=== PATIENT | male | born 1965 | race Two or more races ===

== ENCOUNTER 2025-04-07 13:45 | Inpatient (IN) | payer BC, OTHER ==
[~2025-04-07] VITALS: Ht 180.3 cm; Wt 105.2 kg
[2025-04-07 14:50] VITALS: PULSE 130; RESP 16; O2SAT 96
[2025-04-07 14:55] LABS: Hematocrit 44.5 % (41.0-53.0); Hemoglobin 14.8 g/dL (13.5-17.5); Mean Corpuscular Hemoglobin 30.2 pg (28.0-32.0); Mean Corpuscular Volume 90.7 fL (80.0-100.0); Nucleated Red Blood Cells % 0.0 %
[2025-04-07 15:08] LABS: Alanine Aminotransferase 18 U/L (7-40); Albumin 4.4 g/dL (3.2-4.8); Alkaline Phosphatase 117 U/L (46-116); Anion Gap 13 (5-15); BUN/Creatinine Ratio 14.4 (10.0-20.0); Bilirubin, Total 1.1 mg/dL (0.2-1.0); Blood Urea Nitrogen 16 mg/dL (9-23); Calcium 9.1 mg/dL (8.7-10.4); Carbon Dioxide 28 mmol/L (20-31); Chloride 104 mmol/L (98-107); Glucose 95 mg/dL (74-106); Lipase 34 U/L (12-53); Potassium 3.6 mmol/L (3.5-5.1); Sodium 145 mmol/L (136-145); Total Protein 7.6 g/dL (5.7-8.2)
[2025-04-07] MEDS: PANTOPRAZOLE 40 MG/10 ML VIAL INJ IV ONE (15:10)
[2025-04-07] MEDS: ONDANSETRON HCL 4 MG/2 ML VIAL IV ONE ×2 (15:10→17:03)
[2025-04-07] MEDS: SODIUM CHLORIDE 0.9% 1,000 ML IV ONE ×2 (15:11→17:38)
[2025-04-07] MEDS: IOHEXOL 300 MG/ML 100ML BOTTLE IJ ONE (16:02)
--- NOTE | 2025-04-07 16:45 | DVH ---
CLINICAL INFORMATION: Abdominal pain. TECHNIQUE: Axial CT images of the abdomen and pelvis were obtained after the uneventful administration of 80 mL Omnipaque 300 IV contrast. Coronal and sagittal reformatted images were obtained, reviewed, and stored. All CT scans at this medical facility are performed using dose modulation techniques as appropriate to a performed exam including the following: Automated exposure control was utilized; adjustment of the MA and/or KV according to patient size; and use of iterative reconstruction technique. CTDIvol = 24.22 mGy DLP = 1296.32 mGy-cm COMPARISON: None FINDINGS: Lung bases: Lung bases are clear. Liver: Small cyst in the left hepatic lobe. Biliary: No calcified gallstones or biliary ductal dilatation. Spleen: Unremarkable. Pancreas: Atrophic pancreas. Adrenal glands: Unremarkable. No mass. Kidneys: There are low-density lesions in both kidneys, with the largest in the upper pole of the left kidney consistent with a cyst in the smaller lesions too small to characterize. Aorta/Vascular: Scattered mild atherosclerotic calcification. No abdominal aortic aneurysm or dissection. Lymph Nodes: No mass or lymphadenopathy. Bowel/mesentery: Dilated fluid-filled small bowel loops with transition to nondilated distal small bowel in the right lower abdomen consistent with small- bowel obstruction. Appendix is visualized and appears unremarkable. No free air or free fluid. Pelvic organs: Grossly unremarkable. Bladder: Unremarkable. No mass. Abdominal wall: No mass or hernia. Bones: No acute fracture or focal intraosseous lesion. IMPRESSION: 1. Findings consistent with small-bowel obstruction. 2. Additional findings as detailed above.
--- NOTE | 2025-04-07 16:55 | DVH ---
CHEST RADIOGRAPH Indication: abdominal pain Technique: Single frontal view of the chest was obtained Comparison: None FINDINGS: Lines and Tubes: Sternal wire sutures in place Lungs: No focal consolidation. Pleura: No effusion. No pneumothorax. Cardiomediastinal contours: Unremarkable Bones: No acute osseous abnormality. IMPRESSION: 1. No acute cardiopulmonary disease.
[2025-04-07] MEDS: MORPHINE SULFATE 4 MG/ML SYR/VIAL IV ONE (17:07)
--- NOTE | 2025-04-07 17:10 | ED.PDOC ---
History of Present Illness HPI Comments 59 y/o M is BIBA with c/c of nonradiating, epigastric abdominal pain, nausea, vomiting, and hematemesis. Patient reports on sudden onset of symptoms, earlier, today. Pain is a 10/10 in severity. Denies any bloody or black stools, diarrhea, or further acute symptoms. Per EMS personnel report, patient was found in AFib w/RVR with no history of arrhythmias in the past. 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 Pourer Past Medical History PAST MEDICAL HISTORY: Denies Surgical History: Denies all surgeries Family History Family History: Unknown Social History Smoker: Non-Smoker Alcohol: Denies ETOH Use Drugs: Denies Drug Use Lives In: Home All Other Systems: Reviewed and Negative (Comprehensive review of systems are negative unless stated in HPI) Physical Exam General Appearance: No Apparent Distress, Normal HEENT: Normal ENT Inspection, Pharynx Normal, TMs Normal Neck: Full Range of Motion, Non-Tender, Normal, Normal Inspection Respiratory: Chest Non-Tender, Lungs Clear, No Accessory Muscle Use, No Respiratory Distress, Normal Breath Sounds Cardiovascular: No Edema, No JVD, No Murmur, No Gallop, Normal Peripheral Pulses, Regular Rate/Rhythm Breast Exam: Deferred Gastrointestinal: Epigastric (tenderness ), No Organomegaly, No Pulsatile Mass, Normal Bowel Sounds, Soft, Tenderness (epigastric region ) Genitalia: Deferred Pelvic: Deferred Rectal: Deferred Extremities: No calf tenderness, Normal capillary refill, Normal inspection, Normal range of motion, Non-tender, No pedal edema Musculoskeletal : Apperance: Normal Neurologic: Alert, bit shaver II-XII nml as Tested, No Motor Deficits, Normal Affect, Normal Mood, No Sensory Deficits Cerebellar Function: Normal Reflexes: Normal Skin: Dry, Pallor, Warm Lymphatic: No Adenopathy Was a procedure done? Was a procedure done?: No EKG EKG #1: Pulse Rate (adult): 128 Scott: Normal Cardiac Rhythm: Afib Block: None Hypertrophy: None ST: Normal EKG #2: Pulse Rate (adult): 132 Scott: Normal Cardiac Rhythm: Afib Block: None Hypertrophy: None ST: Normal Differential Dx Considerations may include: Gastritis, gastroenteritis, GERD, PUD, esophageal varices, esophagus, upper GI bleed, anemia, new onset of AFib w/RVR, among others X-Ray, Labs, Meds, VS Vital Signs Date Time Temp Pulse Resp B/P (MAP) Pulse Ox O2 Delivery O2 Flow Rate FiO2 04/07/25 16:34 120 04/07/25 14:48 132 04/07/25 14:04 128 Lab Test 04/07/25 15:17 04/07/25 14:20 Range/Units Troponin I High Sensitivity 13 12 </=54 ng/L White Blood Count 12.0 H 4.4-10.8 10^3/uL Red Blood Count 4.91 4.5-5.90 10^6/uL Hemoglobin 14.8 13.5-17.5 g/dL Hematocrit 44.5 41.0-53.0 % Mean Corpuscular Volume 90.7 80.0-100.0 fL Mean Corpuscular Hemoglobin 30.2 28.0-32.0 pg Mean Corpuscular Hemoglobin Concent 33.2 32.0-36.0 g/dL Red Cell Distribution Width 15.7 H 11.8-14.3 % Platelet Count 166 140-450 10^3/uL Mean Platelet Volume 10.3 6.9-10.8 fL Neutrophils (%) (Auto) 73.3 37.0-80.0 % Lymphocytes (%) (Auto) 16.5 10.0-50.0 % Monocytes (%) (Auto) 9.5 0.0-12.0 % Eosinophils (%) (Auto) 0.4 0.0-7.0 % Basophils (%) (Auto) 0.3 0.0-2.0 % Neutrophils # (Auto) 8.8 H 1.6-8.6 10 ^3/uL Lymphocytes # (Auto) 2.0 0.4-5.4 10 ^3/uL Monocytes # (Auto) 1.1 0-1.3 10 ^3/uL Eosinophils # (Auto) 0.1 0-0.8 10 ^3/uL Basophils # (Auto) 0 0-0.2 10 ^3/uL Nucleated Red Blood Cells 0.0 % Sodium Level 145 136-145 mmol/L Potassium Level 3.6 3.5-5.1 mmol/L Chloride Level 104 98-107 mmol/L Carbon Dioxide Level 28 20-31 mmol/L Anion Gap 13 5-15 Blood Urea Nitrogen 16 9-23 mg/dL Creatinine 1.11 0.700-1.30 mg/dL Glomerular Filtration Rate Calc 77 >90 mL/min BUN/Creatinine Ratio 14.4 10.0-20.0 Serum Glucose 95 74-106 mg/dL Lactic Acid Level 1.7 0.4-2.0 mmol/L Calcium Level 9.1 8.7-10.4 mg/dL Total Bilirubin 1.1 H 0.2-1.0 mg/dL Aspartate Amino Transferase (AST) 41 H 13-40 U/L Alanine Aminotransferase (ALT) 18 7-40 U/L Alkaline Phosphatase 117 H 46-116 U/L Total Protein 7.6 5.7-8.2 g/dL Albumin 4.4 3.2-4.8 g/dL Lipase 34 12-53 U/L Current Medications Medications (Trade) Dose Ordered Sig/Markos Route Start Time Stop Time Status Last Admin Sodium Chloride 1,000 ml @ 1,000 mls/hr Q1H ONCE IV 04/07/25 14:00 04/07/25 14:59 DC 04/07/25 15:11 Ondansetron HCl (Zofran) 4 mg ONCE ONCE IV 04/07/25 14:00 04/07/25 14:04 DC 04/07/25 15:10 Pantoprazole Sodium (Protonix) 80 mg ONCE ONCE IV 04/07/25 14:00 04/07/25 14:05 DC 04/07/25 15:10 Time of 1ST Reevaluation: 14:30 Reevaluation 1ST: Unchanged Patient Education/Counseling: Diagnosis, Treatment Family Education/Counseling: Diagnosis, Treatment SEPSIS Sepsis Screen Physician Orders Urinalysis (04/07/25 13:59) Chest Portable (04/07/25 13:59) Ct Ab Pel With Iv Con Only (04/07/25 13:59) Electrocardigram (04/07/25 13:59) Blood Culture (04/07/25 13:59) Troponin-I Hs (04/07/25 16:59) Electrocardigram (04/07/25 14:59) Electrocardigram (04/07/25 16:59) * Surgical Consult (04/07/25 ) Ng/Orogastric Tube To Lis (04/07/25 17:05) Vital Signs Date Time Temp Pulse Resp B/P (MAP) Pulse Ox O2 Delivery O2 Flow Rate FiO2 04/07/25 16:34 120 04/07/25 14:48 132 04/07/25 14:04 128 Laboratory Tests Test 04/07/25 14:20 Lactic Acid Level 1.7 mmol/L (0.4-2.0) White Blood Count 12.0 10^3/uL (4.4-10.8) H Medications Medications Dose Ordered Sig/Markos Route Start Time Stop Time Status Last Admin Dose Admin Ondansetron HCl 4 mg ONCE ONCE IV 04/07/25 14:00 04/07/25 14:04 DC 04/07/25 15:10 Pantoprazole Sodium 80 mg ONCE ONCE IV 04/07/25 14:00 04/07/25 14:05 DC 04/07/25 15:10 Sodium Chloride 1,000 ml @ 1,000 mls/hr Q1H ONCE IV 04/07/25 14:00 04/07/25 14:59 DC 04/07/25 15:11 Departure 1 Departure Time of Disposition: 17:11 (Patient presented with abdominal pain that was concerning for possible appendicits, gastritis, cholecystitis, colitis, gastroenteritis, sbo, or orther possible surgical emergency. Data: 1. I ordered and reviewed the result of at least 3 labs including a CBC, BMP, and Urinalysis. 2. I independently interpreted the following tests: CT Abdomen and Pelvis is concerning for SBO.Risk:This patient has a high risk of morbidity due to further diagnostic testing or treatment and may suffer from an acute abdominal process disorder. Workup reveals SBO new onset AFib and patient should be admitted for further workup. and possible expert consultation. ) Impression: Primary Impression: Small bowel obstruction Additional Impression: Atrial fibrillation, new onset Disposition: ADMITTED INPATIENT Admit to: Tele Condition: Guarded Critical Care Note Critical Care Time?: Yes Critical care comment: Small-bowel obstruction and new onset AFib Authorized and Performed by: Yessica Kearns MD Total critical care time: Approximately 41 minutes Due to a high probability of clinically significant, life threatening deterioration, the patient required my highest level of preparedness to intervene emergently and I personally spent this critical care time directly and personally managing the patient. This critical care time included obtaining a history; examining the patient; pulse oximetry; ordering and review of studies; arranging urgent treatment with development of a management plan; evaluation of patient's response to treatment; frequent reassessment; and, discussions with other providers. This critical care time was performed to assess and manage the high probability of imminent, life-threatening deterioration that could result in multi-organ failure. It was exclusive of separately billable procedures and treating other patients and teaching time. Please see my other sections and the rest of the note for further information on patient assessment and treatment. Stability Stability form required: No Heart Score Heart Score: Heart Score Response (Comments) Value History N/A 0 EKG N/A 0 Age N/A 0 Risk Factors N/A 0 Troponin N/A 0 Total 0 I personally scribed for YESSICA KEARNS MD ([email or web address]) on 04/07/25 at 17:10. Electronically submitted by Francisco J Eng [email or web address]). YESSICA KEARNS MD Apr 07, 2025 17:10
[2025-04-07] MEDS ORDERED: NITROGLYCERIN 0.4 MG SL TAB SL PRN (18:15)
[2025-04-07] MEDS ORDERED: MORPHINE SULFATE INJ 2 MG/ml SYRG IV PRN (18:15)
[2025-04-07] MEDS ORDERED: ENOXAPARIN SOD 80 MG/0.8ML SYRINGE SC ONE (19:00)
[2025-04-07] MEDS: AMIODARONE BOLUS KIT 100 ML IV ONE (19:37)
[2025-04-07 21:53] LABS: Urine Protein, UAD 1+ (Negative)
[2025-04-07] MEDS: PIPERACILLIN-TAZOB 3.375GM 100 ML IV SCH (22:50)
[2025-04-07] MEDS: SODIUM CHLORIDE 0.9% 1,000 ML IV SCH (22:51)
[2025-04-07] MEDS: ONDANSETRON HCL 4 MG/2 ML VIAL IV PRN (22:51)
[2025-04-07] MEDS: MORPHINE SULFATE INJ 2 MG/ml SYRG IV PRN (22:53)
[2025-04-07] MEDS: ENOXAPARIN SOD 120 MG/0.8 ML SYRINGE SC SCH (22:53)
[2025-04-08] VITALS (40 sets, daily range): BP systolic 131–178; BP diastolic 74–143; PULSE 90–150; RESP 12–26; TEMP 97.9–99.1; O2SAT 81–97
--- NOTE | 2025-04-08 00:20 | DVHHP2 ---
Admitting Diagnosis: Small Bowel Obstruction, Afib with RVR History of Present Illness History Source: Patient Exam Limitations: No limitations HPI Mr. Lai Yan is a 59 y/o male with a history of CVA with right sided weakenss, seizures, heart valve replacement x2, who presents with a chief complaint of nonradiating, epigastric abdominal pain, nausea, vomiting, and hematemesis. Patient reports on sudden onset of symptoms, earlier, today. Pain is a 10/10 in severity. Denies any bloody or black stools, diarrhea, or further acute symptoms. Patient was found in AFib w/RVR at Urgent care with no history of arrhythmias in the past. Patient denies nausea, vomiting, chest pain, dyspnea, fevers, chills. Patient admitted for further evaluation and treatment. Past Medical History Cardiac: No pertinent Hx Pulmonary: No pertinent Hx Central Nervous System: CVA, Seizure GI: No pertinent Hx Hemotology/Oncology: No pertinent Hx Hepatobiliary: No pertinent Hx Psychiatric: No pertinent Hx Musculoskeletal: No pertinent Hx Rheumotologic: No pertinent Hx Infectious Disease: No peritnent Hx ENT: No pertinent Hx Renal/: No pertinent Hx Endocrine: No pertinent Hx Dermatology: No pertinent Hx Past Surgical History: Other (heart valve replacement x2) Smoker: No Hx (Negative) Drugs: None Domestic Violence: Neg Review of Systems Constitutional: No symptom reported Ears, Nose, & Throat: No symptom reported Eyes: No symptom reported Pulmonary/Respiratory: No symptom reported Cardiovascular: Palpitations Gastrointestinal: Nausea, Vomiting, Abdominal Pain Genitourinary: No symptom reported Musculoskeletal: No symptom reported Skin: No symptom reported Psychiatric: No symptom reported Endocrine: No symptom reported Hemotologic/Lymphatic: No symptom reported H&P Exam Vital Signs Vital Signs Date Time Temp Pulse Resp B/P (MAP) Pulse Ox O2 Delivery O2 Flow Rate FiO2 04/07/25 23:31 105 15 135/96 (109) 95 04/07/25 19:18 98.0 98.0 04/07/25 14:50 Room Air* 0 21 General Appeara: Well developed, Well nourished, Normal Appearance Head Exam: Normal inspection Neck Exam: Normal inspection, Non-tender, Normal alignment Eye Exam: bilateral eye Normal inspection, bilateral eye PERRL, bilateral eye EOMI Ear Exam: bilateral ear Auricle normal Nasal Exam: Normal inspection Mouth: Normal Inspection Pulmonary/Respiratory: Normal inspection, Normal breath sounds, Chest non- tender, Lungs clear Cardiovascular/Chest: Normal inspection, Regular rate, Normal Rhythm Peripheral Pulses: 2+ dorsalis pedis (R), 2+ dorsalis pedis (L), 2+ Radial (R), 2+ Radial (L) Abdominal Exam: Soft, Other (hypoactive bowel sounds) 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, Normal speech, PERRL Neuro/Mental St: Alert, Oriented Appearance: Appropriate appearance, Appropriate insight Eye contact/ Speech: Cooperative, Good eye contact, Normal speech Thoughts/Psych: Normal thought pattern Skin Exam: Normal inspection, Normal color, Warm/dry SEPSIS Sepsis Screen Date sepsis recognized/suspect: Apr 07, 2025 Time Sepsis recognized/suspect: 1349 Recent Procedure: No On Antibiotic Therapy: No Respiratory Rate >20: No Heart Rate >90: No Temp<36 C (96.8 F) or >38.3 C: No SBP <90 or MAP <65 mmHG: No New Acute Mental Status Change: No Is the patient on CPAP, BIPAP,: No Physician Orders * Surgical Consult (04/07/25 ) Ng/Orogastric Tube To Lis (04/07/25 17:05) Admit (04/07/25 18:04) Sodium Chloride 0.9% (04/07/25 18:15) Ondansetron Hcl (Zofran) (04/07/25 18:15) Complete Blood Count (04/08/25 04:00) Comprehensive Metabolic Panel (04/08/25 04:00) Npo (Nothing By Mouth) Diet (04/07/25 Dinner) Echo 2d Mode Cardiac Dop (04/07/25 18:04) Condition: Critical (04/07/25 18:04) Morphine Sulfate Injection (04/07/25 18:15) Nitroglycerin Sublingual (Ntrostat Subli (04/07/25 18:15) Morphine Sulfate Injection (04/07/25 18:15) Stat Ekg For Chest Pain (04/07/25 18:04) Notify Md Of Changes From Base (04/07/25 18:04) Account Manager Sales Representative For 24 Hours (04/07/25 18:04) Emergency Dysrhythmia Protocol (04/07/25 18:04) Rhythm Strips Once Every Shift (04/07/25 18:04) Oxygen By Nasal Cannula (04/07/25 18:04) * Cardiology Consult (04/07/25 18:08) Amiodarone 450mg/250ml Ae (Cordarone) (04/07/25 19:30) Amiodarone 450mg/250ml Ae (Cordarone) (04/08/25 01:30) Communication Order (04/07/25 19:18) Hydralazine Injection (Apresoline Inject (04/07/25 19:30) Piperacillin-Tazob 3.375gm (Zosyn 3.375g (04/07/25 22:00) Enoxaparin Sodium (Lovenox) (04/07/25 22:00) Place Ng (04/07/25 22:18) Chest Xray 1 View (04/07/25 23:15) Levetiracetam 1000 Mg/100ml (Levetiracet (04/08/25 00:15) Vital Signs Date Time Temp Pulse Resp B/P (MAP) Pulse Ox O2 Delivery O2 Flow Rate FiO2 04/07/25 23:31 105 15 135/96 (109) 95 04/07/25 23:23 102 16 147/90 04/07/25 22:53 105 15 152/92 04/07/25 22:31 108 17 145/93 (110) 95 04/07/25 21:31 117 16 146/90 (108) 99 04/07/25 21:00 103 16 152/95 (114) 94 04/07/25 19:18 98.0 150 18 160/97 95 98.0 04/07/25 19:00 130 16 172/92 (118) 100 04/07/25 17:10 132 04/07/25 17:07 85 16 173/90 04/07/25 17:00 130 16 173/90 (117) 91 04/07/25 16:34 120 Laboratory Tests Test 04/07/25 14:20 Lactic Acid Level 1.7 mmol/L (0.4-2.0) White Blood Count 12.0 10^3/uL (4.4-10.8) H Medications Medications Dose Ordered Sig/Markos Route Start Time Stop Time Status Last Admin Dose Admin Amiodarone HCl 100 ml @ 600 mls/hr ONCE ONCE IV 04/07/25 19:15 04/07/25 19:30 MD 04/07/25 19:37 600 MLS/HR Amiodarone HCl 250 ml @ 33.33 mls/ hr Q7H31M ONCE IV 04/07/25 19:30 04/08/25 03:00 04/07/25 20:31 33.33 MLS/HR Enoxaparin Sodium 110 mg Q12HR SC 04/07/25 22:00 04/07/25 22:53 110 MG Morphine Sulfate 2 mg Q4HPRN PRN IV 04/07/25 18:15 04/07/25 22:53 2 MG Morphine Sulfate 4 mg ONCE ONCE IV 04/07/25 17:00 04/07/25 17:01 MD 04/07/25 17:07 4 MG Ondansetron HCl 4 mg ONCE ONCE IV 04/07/25 14:00 04/07/25 14:04 MD 04/07/25 15:10 4 MG Ondansetron HCl 4 mg ONCE ONCE IV 04/07/25 17:00 04/07/25 17:01 MD 04/07/25 17:03 4 MG Ondansetron HCl 4 mg Q4HP PRN IV 04/07/25 18:15 04/07/25 22:51 4 MG Pantoprazole Sodium 80 mg ONCE ONCE IV 04/07/25 14:00 04/07/25 14:05 MD 04/07/25 15:10 80 MG Piperacillin Sod/ Tazobactam Sod 100 ml @ 25 mls/hr Q8HR IV 04/07/25 22:00 04/07/25 22:50 25 MLS/HR Sodium Chloride 1,000 ml @ 120 mls/hr Q8H20M IV 04/07/25 18:15 04/07/25 22:51 120 MLS/HR Sodium Chloride 1,000 ml @ 1,000 mls/hr Q1H ONCE IV 04/07/25 14:00 04/07/25 14:59 DC 04/07/25 15:11 1,000 MLS/HR Sodium Chloride 1,000 ml @ 1,000 mls/hr Q1H ONCE IV 04/07/25 17:30 04/07/25 18:29 DC 04/07/25 17:38 1,000 MLS/HR Labs/Xrays Labs Test 04/07/25 21:30 04/07/25 17:58 04/07/25 14:20 Range/Units Urine Color Yellow Yellow Urine Clarity Clear Clear Urine pH 6.0 5.0-9.0 Urine Specific [place] > 1.050 H 1.001-1.035 Urine Protein 1+ H Negative Urine Ketones 1+ H Negative Urine Blood Negative Negative /uL Urine Nitrite Negative Negative Urine Bilirubin Negative Negative Urine Urobilinogen 2 H Negative mg/dL Urine Leukocyte Esterase Negative Negative /uL Urine RBC <1 0 - 3 /hpf Urine Microscopic WBC 1 0-3 /HPF Urine Squamous Epithelial Cells Few <5 /hpf Urine Bacteria None seen None Seen /hpf Urine Glucose Normal Normal mg/dL Troponin I High Sensitivity 16 </=54 ng/L White Blood Count 12.0 H 4.4-10.8 10^3/uL Red Blood Count 4.91 4.5-5.90 10^6/uL Hemoglobin 14.8 13.5-17.5 g/dL Hematocrit 44.5 41.0-53.0 % Mean Corpuscular Volume 90.7 80.0-100.0 fL Mean Corpuscular Hemoglobin 30.2 28.0-32.0 pg Mean Corpuscular Hemoglobin Concent 33.2 32.0-36.0 g/dL Red Cell Distribution Width 15.7 H 11.8-14.3 % Platelet Count 166 140-450 10^3/uL Mean Platelet Volume 10.3 6.9-10.8 fL Neutrophils (%) (Auto) 73.3 37.0-80.0 % Lymphocytes (%) (Auto) 16.5 10.0-50.0 % Monocytes (%) (Auto) 9.5 0.0-12.0 % Eosinophils (%) (Auto) 0.4 0.0-7.0 % Basophils (%) (Auto) 0.3 0.0-2.0 % Neutrophils # (Auto) 8.8 H 1.6-8.6 10 ^3/uL Lymphocytes # (Auto) 2.0 0.4-5.4 10 ^3/uL Monocytes # (Auto) 1.1 0-1.3 10 ^3/uL Eosinophils # (Auto) 0.1 0-0.8 10 ^3/uL Basophils # (Auto) 0 0-0.2 10 ^3/uL Nucleated Red Blood Cells 0.0 % Sodium Level 145 136-145 mmol/L Potassium Level 3.6 3.5-5.1 mmol/L Chloride Level 104 98-107 mmol/L Carbon Dioxide Level 28 20-31 mmol/L Anion Gap 13 5-15 Blood Urea Nitrogen 16 9-23 mg/dL Creatinine 1.11 0.700-1.30 mg/dL Glomerular Filtration Rate Calc 77 >90 mL/min BUN/Creatinine Ratio 14.4 10.0-20.0 Serum Glucose 95 74-106 mg/dL Lactic Acid Level 1.7 0.4-2.0 mmol/L Calcium Level 9.1 8.7-10.4 mg/dL Total Bilirubin 1.1 H 0.2-1.0 mg/dL Aspartate Amino Transferase (AST) 41 H 13-40 U/L Alanine Aminotransferase (ALT) 18 7-40 U/L Alkaline Phosphatase 117 H 46-116 U/L Total Protein 7.6 5.7-8.2 g/dL Albumin 4.4 3.2-4.8 g/dL Lipase 34 12-53 U/L Assessment/Plan Problem List: (1) Small bowel obstruction (2) Atrial fibrillation, new onset Plan This is a 59 yo male with known history of seizure disorder, anxiety depression disorder who presents with a chief complaint of abdominal pain, palpitations. Patient found to have 1. Small Bowel Obstruction 2. New onset Afib with RVR 3. Seizure Disorder 4. Anxiety depression disorder Plan Admit SDU General surgeon consultation Cardiology consultation NGT to LIS NPO IV fluids IV abx Lovenox 1mg/kg SC every 12 hours Continue home medications when reconciled Antiseizure medication Keppra IV Discussed all above with patient who verbalizes agreement and understanding of care plan. All questions were answered. Discussed care plan with supervising/admitting MD. Plan discussed with: Patient, Other Code Visit Code Visit Total Time (mins): 45 BRANDON MARSHALL Apr 08, 2025 00:20
--- NOTE | 2025-04-08 00:45 | DVH ---
MEDICAL RECORDS NUMBER: [id number] PROCEDURE: XY CHEST XRAY 1 VIEW DATE: 04/07/2025 11:24 PM HISTORY: ng tube placement verification Views:1 COMPARISON: XY CHEST PORTABLE on DOS: 04/07/25 FINDINGS/IMPRESSION: Lungs: The lungs are clear. Mediastinum: Mediastinal structures appear unremarkable.NG tube is seen with the tip projecting over the expected position of the stomach. Skeletal: The skeletal structures appear unremarkable.
[2025-04-08] MEDS: hydrALAZINE HCL 20 MG/ML VL IV PRN (01:23)
[2025-04-08] MEDS: levETIRAcetam 1000 mg/100ml 100 ML IV SCH (01:27)
[2025-04-08 03:04] LABS: Hematocrit 41.0 % (41.0-53.0); Hemoglobin 13.5 g/dL (13.5-17.5); Mean Corpuscular Hemoglobin 30.0 pg (28.0-32.0); Mean Corpuscular Volume 91.3 fL (80.0-100.0); Nucleated Red Blood Cells % 0.1 %
[2025-04-08 03:19] LABS: Alanine Aminotransferase 18 U/L (7-40); Alkaline Phosphatase 99 U/L (46-116); Anion Gap 13 (5-15); Blood Urea Nitrogen 15 mg/dL (9-23); Carbon Dioxide 25 mmol/L (20-31); Chloride 105 mmol/L (98-107); Glucose 103 mg/dL (74-106); Potassium 3.5 mmol/L (3.5-5.1); Sodium 143 mmol/L (136-145); Total Protein 6.7 g/dL (5.7-8.2)
[2025-04-08 03:20] LABS: Albumin 3.9 g/dL (3.2-4.8); BUN/Creatinine Ratio 14.4 (10.0-20.0); Bilirubin, Total 1.2 mg/dL (0.2-1.0)
[2025-04-08 03:21] LABS: Calcium 8.6 mg/dL (8.7-10.4)
[2025-04-08] MEDS ORDERED: POTA-180 PO (08:14)
[2025-04-08] MEDS ORDERED: DIVA1TAB59 PO (08:14)
[2025-04-08] MEDS ORDERED: LEVE100020 PO (08:14)
[2025-04-08] MEDS ORDERED: ALBU108A5 INH (08:14)
[2025-04-08] MEDS ORDERED: FURO40TA4 PO (08:14)
[2025-04-08] MEDS ORDERED: ATOR20TA50 PO (08:14)
[2025-04-08] MEDS ORDERED: CLON0.1T PO (08:14)
[2025-04-08] MEDS ORDERED: BENZ1TAB6 PO (08:14)
[2025-04-08] MEDS ORDERED: SERT25TA28 PO (08:14)
[2025-04-08] MEDS ORDERED: QUET200T45 PO (08:14)
[2025-04-08] MEDS ORDERED: HYDR-3682 PO (08:14)
[2025-04-08] MEDS ORDERED: PROP1TAB53 PO (08:14)
[2025-04-08] MEDS ORDERED: LAMO200T34 PO (08:14)
[2025-04-08] MEDS ORDERED: CYCL-611 PO (08:14)
[2025-04-08] MEDS ORDERED: FLUT1AER5 IN (08:16)
[2025-04-08] MEDS ORDERED: NALO0.4I4 IJ (08:16)
[2025-04-08] MEDS ORDERED: ASPI325T6 PO (08:16)
[2025-04-08] MEDS ORDERED: CHOL20007 PO (08:16)
--- NOTE | 2025-04-08 11:18 | DVHINCON2 ---
Consultation - Surgical Date Seen: Apr 08, 2025 Referring Physician Reason for Consultation Small bowel obstruction History of Present Illness History of Present Illness Mr. Thomas is a 59-year-old male who presented to the hospital with nausea, vomiting, abdominal pain, and inability to pass stool. He stated that he noticed some crampy abdominal pain starting 3 weeks ago, then he developed diarrhea and then subsequently got constipated. The acute change started on Wednesday, were the cramps got worse he got really distended and started having nausea and vomiting. States that this has never happened to him before. States that he has been having some loss of appetite when all this started 3 weeks ago, but not before that, he has been eating less and states that he has lost a proximally 16 lb since all this started. Denies fevers, chills, changes in urinary habits. Past Medical/Surgical History Past Medical/Surgical History Past medical history hypertension, seizures Past surgical history heart valve replacement Family and Social History Family and Social History Family history noncontributory ETOH/T Ob/drugs denies Allergies and medications Allergies: Coded Allergies: NO KNOWN ALLERGIES (Unverified , 04/07/25) Home Meds Reported Medications Naloxone HCl (Naloxone HCl) 4 Mg/10 Ml Inj, 4 MG IJ, INJ 04/08/25 Fluticasone-Salmeterol (Wixela Inhub 100-50 Mcg/Dose) 1 Aer Aer, 1 AER IN, AER 04/08/25 Cholecalciferol (VITAMIN D3) 2,000 Unit Tab, 1 TAB PO DAILY, #30 TAB 5 Refills 04/08/25 Aspirin (Aspirin) 325 Mg Tab, 325 MG PO DAILY for 30 Days, MG 04/08/25 Sertraline Hcl (Sertraline Hcl) 25 Mg Tab, TAB PO 04/08/25 Quetiapine Fumerate (QUETIAPINE FUMARATE) 200 Mg Tab, 1 TAB PO 04/08/25 Propranolol HCl (Propranolol Hydrochloride) 20 Mg Tab, TAB PO 04/08/25 Potassium Chloride (Potassium Chloride ER) 20 Meq Tab, 1 TAB PO BID 04/08/25 Levetiracetam (Levetiracetam) 1,000 Mg Tab, 1 TAB PO BID 04/08/25 Lamotrigine (Lamotrigine) 200 Mg Tab, 1 TAB PO BID 04/08/25 Hydroxyzine Hcl (Hydroxyzine Hcl) 25 Mg Tab, 1 TAB PO BID 04/08/25 Furosemide (Furosemide) 40 Mg Tab, 1 TAB PO BID 04/08/25 Divalproex Sodium (Divalproex Sodium Dr) 500 Mg Tab, TAB PO 04/08/25 Cyclobenzaprine HCl (Cyclobenzaprine Hydrochlo) 10 Mg Tab, 1 TAB PO BIDPRN PRN for FOR MUSCLE SPASM 04/08/25 Clonidine Hydrochloride (Clonidine Hcl) 0.1 Mg Tab, 1 TAB PO TID 04/08/25 Benztropine Mesylate (Benztropine Mesylate) 1 Mg Tab, TAB PO 04/08/25 Atorvastatin Calcium (ATORVASTATIN CALCIUM) 20 Mg Tab, 1 TAB PO DAILY 04/08/25 Albuterol Sulfate (Albuterol Sulfate Hfa) 108 Mcg/Act Aer, INH 04/08/25 Review of systems Review of Systems: Deferred Examination Vital signs Vital Signs Date Time Temp Pulse Resp B/P (MAP) Pulse Ox O2 Delivery O2 Flow Rate FiO2 04/08/25 09:00 116 24 141/96 (111) 95 04/08/25 08:00 97.9 97.9 04/08/25 03:32 Room Air* 0 21 Medications Current Medications Medications (Trade) Dose Ordered Sig/Markos Route PRN Reason Start Time Stop Time Status Last Admin Sodium Chloride 1,000 ml @ 120 mls/hr Q8H20M IV 04/07/25 18:15 04/08/25 04:07 Ondansetron HCl (Zofran) 4 mg Q4HP PRN IV NAUSEA / VOMITING 04/07/25 18:15 04/07/25 22:51 Morphine Sulfate 2 mg Q4HPRN PRN IV SEVERE PAIN (7-10 PAIN SCALE) 04/07/25 18:15 04/07/25 22:53 Nitroglycerin (Ntrostat Sublingual) 0.4 mg Q5MINP PRN SL FOR CHEST PAIN 04/07/25 18:15 Morphine Sulfate 2 mg Q30M PRN IV FOR CHEST PAIN 04/07/25 18:15 Enoxaparin Sodium (Lovenox) 110 mg Q12HR SC 04/07/25 22:00 04/08/25 09:34 Amiodarone HCl 250 ml @ 16.66 mls/ hr Q15H1M IV 04/08/25 01:30 04/08/25 04:06 Hydralazine HCl (Apresoline Injection) 10 mg Q6HP PRN IV SBP>160 04/07/25 19:30 04/08/25 01:23 Piperacillin Sod/ Tazobactam Sod 100 ml @ 25 mls/hr Q8HR IV 04/07/25 22:00 04/08/25 06:49 Levetiracetam 100 ml @ 400 mls/hr BID IV 04/08/25 00:15 04/08/25 09:33 Laboratory Labs Test 04/08/25 02:19 04/07/25 21:30 04/07/25 17:58 04/07/25 14:20 Range/Units White Blood Count 12.7 H 4.4-10.8 10^3/uL Red Blood Count 4.49 L 4.5-5.90 10^6/uL Hemoglobin 13.5 13.5-17.5 g/dL Hematocrit 41.0 41.0-53.0 % Mean Corpuscular Volume 91.3 80.0-100.0 fL Mean Corpuscular Hemoglobin 30.0 28.0-32.0 pg Mean Corpuscular Hemoglobin Concent 32.9 32.0-36.0 g/dL Red Cell Distribution Width 15.9 H 11.8-14.3 % Platelet Count 153 140-450 10^3/uL Mean Platelet Volume 10.2 6.9-10.8 fL Neutrophils (%) (Auto) 57.1 37.0-80.0 % Lymphocytes (%) (Auto) 28.4 10.0-50.0 % Monocytes (%) (Auto) 13.2 H 0.0-12.0 % Eosinophils (%) (Auto) 1.1 0.0-7.0 % Basophils (%) (Auto) 0.2 0.0-2.0 % Neutrophils # (Auto) 7.3 1.6-8.6 10 ^3/uL Lymphocytes # (Auto) 3.6 0.4-5.4 10 ^3/uL Monocytes # (Auto) 1.7 H 0-1.3 10 ^3/uL Eosinophils # (Auto) 0.1 0-0.8 10 ^3/uL Basophils # (Auto) 0 0-0.2 10 ^3/uL Nucleated Red Blood Cells 0.1 % Sodium Level 143 136-145 mmol/L Potassium Level 3.5 3.5-5.1 mmol/L Chloride Level 105 98-107 mmol/L Carbon Dioxide Level 25 20-31 mmol/L Anion Gap 13 5-15 Blood Urea Nitrogen 15 9-23 mg/dL Creatinine 1.04 0.700-1.30 mg/dL Glomerular Filtration Rate Calc 84 >90 mL/min BUN/Creatinine Ratio 14.4 10.0-20.0 Serum Glucose 103 74-106 mg/dL Calcium Level 8.6 L 8.7-10.4 mg/dL Total Bilirubin 1.2 H 0.2-1.0 mg/dL Aspartate Amino Transferase (AST) 43 H 13-40 U/L Alanine Aminotransferase (ALT) 18 7-40 U/L Alkaline Phosphatase 99 46-116 U/L Total Protein 6.7 5.7-8.2 g/dL Albumin 3.9 3.2-4.8 g/dL Urine Color Yellow Yellow Urine Clarity Clear Clear Urine pH 6.0 5.0-9.0 Urine Specific [place] > 1.050 H 1.001-1.035 Urine Protein 1+ H Negative Urine Ketones 1+ H Negative Urine Blood Negative Negative /uL Urine Nitrite Negative Negative Urine Bilirubin Negative Negative Urine Urobilinogen 2 H Negative mg/dL Urine Leukocyte Esterase Negative Negative /uL Urine RBC <1 0 - 3 /hpf Urine Microscopic WBC 1 0-3 /HPF Urine Squamous Epithelial Cells Few <5 /hpf Urine Bacteria None seen None Seen /hpf Urine Glucose Normal Normal mg/dL Troponin I High Sensitivity 16 </=54 ng/L Lactic Acid Level 1.7 0.4-2.0 mmol/L Lipase 34 12-53 U/L Microbiology Date/Time Source Procedure Growth Status 04/07/25 14:24 Blood Blood Culture - Preliminary Resulted Examination: GENERAL:Normal (AAO x3), HEENT:Normal (No icterus, neck supple, NG tube in place), LUNGS:Normal (Nonlabored breathing with symmetric expansion), ABDOMEN:Normal (Globose, soft, depressible, nontender, no scars, no hernias) Problem List/Assessment/Plan Problems: (1) Small bowel obstruction Assessment and Plan Mr. Thomas is a 59-year-old male who presented with a small-bowel obstruction. CT shows distended stomach and proximal loops of small bowel with a transition point low in the right lower quadrant. NG tube was placed yesterday and 6 L of fluid was evacuated. Patient feeling much better this morning and had a bowel movement overnight, although small. We will continue with small bowel decompression with a NG tube to low intermittent suctioned and bowel rest. Likely small bowel follow-through tomorrow morning. 1. Continue with NG tube to LIS 2. NPO 3. Maintenance IV fluids 4. A.m. labs 5. Avoid narcotics, for pain control may use Tylenol and/or ibuprofen 6. Possible small bowel follow-through in the morning Plan discussed with Plan discussed with: Patient, Spouse Visit Coding Surgery Date of Service if different f: Apr 08, 2025 Billing Provider: KAIDEN WOODWARD MD Surgery Visit Codes: [id number] - INP CONSULT <110 MIN KAIDEN WOODWARD MD Apr 08, 2025 11:18
[2025-04-08] MEDS: DIGOXIN (250MCG/ML) 2 ML AMPULE IV ONE (16:00)
--- NOTE | 2025-04-08 16:05 | DVH ---
CHEST RADIOGRAPH Indication: NG PLACEMENT/ADVANCEMENT Technique: Single frontal view of the chest was obtained COMPARISON: XY CHEST XRAY 1 VIEW on DOS: 04/07/25, XY CHEST PORTABLE on DOS: 04/07/25 FINDINGS: Lines and Tubes: Nasogastric tube in satisfactory position. Lungs: Increased interstitial prominence. This may represent pulmonary vascular congestion and/or viral pneumonia. Pleura: No effusion. No pneumothorax. Cardiomediastinal contours: Median sternotomy. Bones: Unremarkable IMPRESSION: Nasogastric tube in satisfactory position.
--- NOTE | 2025-04-08 17:07 | DVHPN2 ---
Subjective Patient denies any nausea and vomiting feeling much better after NG tube placement. Changes from previous H/P or p: No Changes Objective Vitals Vital Signs Date Time Temp Pulse Resp B/P (MAP) Pulse Ox O2 Delivery O2 Flow Rate FiO2 04/08/25 16:00 99.1 120 15 147/94 (111) 93 99.1 04/08/25 08:00 Nasal Cannula* 3 32 Intake/Output Intake and Output 04/08/25 07:00 Intake Total 534.97 ml Balance 534.97 ml Intake IV Total 534.97 ml # Voids 2 Exam HEENT pupils are reactive Neck is supple CV is S1-S2 regular rate and rhythm Diminished breath sounds bases GI positive bowel sounds sluggish Extremity no edema [employer] no motor deficit Medications Current Medications Medications Dose Ordered Sig/Markos Route Start Time Stop Time Status Last Admin Dose Admin Sodium Chloride 1,000 ml @ 120 mls/hr Q8H20M IV 04/07/25 18:15 04/08/25 13:51 120 MLS/HR Ondansetron HCl 4 mg Q4HP PRN IV 04/07/25 18:15 04/08/25 13:16 4 MG Morphine Sulfate 2 mg Q4HPRN PRN IV 04/07/25 18:15 04/08/25 13:04 2 MG Nitroglycerin 0.4 mg Q5MINP PRN SL 04/07/25 18:15 Morphine Sulfate 2 mg Q30M PRN IV 04/07/25 18:15 Enoxaparin Sodium 110 mg Q12HR SC 04/07/25 22:00 04/08/25 09:34 110 MG Hydralazine HCl 10 mg Q6HP PRN IV 04/07/25 19:30 04/08/25 13:47 10 MG Piperacillin Sod/ Tazobactam Sod 100 ml @ 25 mls/hr Q8HR IV 04/07/25 22:00 04/08/25 14:36 25 MLS/HR Levetiracetam 100 ml @ 400 mls/hr BID IV 04/08/25 00:15 04/08/25 09:33 400 MLS/HR Valproate Sodium 250 mg/Sodium Chloride 52.5 ml @ 52.5 mls/hr BID IV 04/08/25 22:00 Laboratory Results Laboratory Tests 04/08/25 02:19 Chemistry Test 04/08/25 02:19 04/08/25 16:44 Albumin 3.9 g/dL (3.2-4.8) Calcium Level 8.6 mg/dL (8.7-10.4) L Total Protein 6.7 g/dL (5.7-8.2) Magnesium Level Pending LFT Test 04/08/25 02:19 Alanine Aminotransferase (ALT) 18 U/L (7-40) Alkaline Phosphatase 99 U/L (46-116) Aspartate Amino Transferase (AST) 43 U/L (13-40) H Total Bilirubin 1.2 mg/dL (0.2-1.0) H Urinalysis Test 04/07/25 21:30 Urine Color Yellow (Yellow) Urine Clarity Clear (Clear) Urine pH 6.0 (5.0-9.0) Urine Specific [place] > 1.050 (1.001-1.035) Urine Protein 1+ (Negative) H Urine Ketones 1+ (Negative) H Urine Blood Negative /uL (Negative) Urine Nitrite Negative (Negative) Urine Bilirubin Negative (Negative) Urine Urobilinogen 2 mg/dL (Negative) H Urine Leukocyte Esterase Negative /uL (Negative) Urine RBC <1 /hpf (0 - 3) Urine Microscopic WBC 1 /HPF (0-3) Urine Squamous Epithelial Cells Few /hpf (<5) Urine Bacteria None seen /hpf (None Seen) Urine Glucose Normal mg/dL (Normal) Microbiology Microbiology Date/Time Source Procedure Growth Status 04/07/25 14:24 Blood Blood Culture - Preliminary Resulted Assessment/Plan Assessment/Plan 59-year-old male with a known history of seizure disorder, anxiety and depression disorder, bipolar disorder initially presented to the hospital with the abdominal pain abdominal bloating worsening for a week found to have 1. Small-bowel obstruction 2. New onset of AFib with RVR 3. Seizure disorder 4. Anxiety and depression disorder 5. Bipolar disorder -continue IV amiodarone, keep NPO NG tube, small bowel series. Plan discussed with: Patient My Orders Orders - CHELO MAZA MD Procedure Category Date Status Time Admit ADMIT 04/07/25 Transmitted 18:04 Sodium Chloride 0.9% PHA 04/07/25 In Process 18:15 Ondansetron Hcl PHA 04/07/25 In Process (Zofran) 18:15 Npo (Nothing By DIET 04/07/25 Transmitted Mouth) Diet Dinner Condition: Critical GRAY 04/07/25 In Process 18:04 Morphine Sulfate PHA 04/07/25 In Process Injection 18:15 Nitroglycerin PHA 04/07/25 In Process Sublingual (Ntrostat 18:15 Morphine Sulfate PHA 04/07/25 In Process Injection 18:15 Stat Ekg For Chest GRAY 04/07/25 In Process Pain 18:04 Notify Of Changes GRAY 04/07/25 In Process From Base 18:04 Clinical Appeals Rn For GRAY 04/07/25 In Process 24 Hours 18:04 Emergency Dysrhythmia GRAY 04/07/25 In Process Protocol 18:04 Rhythm Strips Once GRAY 04/07/25 In Process Every Shift 18:04 Oxygen By Nasal RT 04/07/25 Transmitted Cannula 18:04 * Cardiology Consult CONS 04/07/25 Transmitted 18:08 * Dietary Consult CONS 04/08/25 Transmitted 11:20 * Wound Consult CONS 04/08/25 Transmitted Valproate Inj PHA 04/08/25 In Process (Depacon) 22:00 Amiodarone PHA 04/08/25 In Process 450mg/250ml Ae 15:15 Chest Xray 1 View XY 04/08/25 Resulted 15:27 Magnesium LAB 04/08/25 In Process 16:19 Potassium LAB 04/08/25 In Process 16:23 Mrsa Screen SHANIQUE 04/08/25 In Process 03:32 Date of Service: Apr 08, 2025 Billing Provider: CHELO MAZA MD Common Visit Codes: NOT BILLABLE CHELO MAZA MD Apr 08, 2025 17:07
[2025-04-08] MEDS: VALPROATE INJ 250 MG in SODIUM CHL 0.9% 50 ML IV SCH (20:53)
--- NOTE | 2025-04-08 21:31 | DVHINCON2 ---
DATE OF CONSULTATION: 04/07/2025 Cardiology Consultation REFERRING PHYSICIAN: Dr. Fairchild. CONSULTING PHYSICIAN: Daniella Saunders MD INDICATION: AFib. 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 While in the urgent care, the patient was noted to be in AFib and was sent to the hospital for further management. At the time of my evaluation, the patient's heart rate is in the 120s and 130s. The patient denies prior history of arrhythmia mcc. He denies any chest pain. However, he is complaining of abdominal pain. He denies any worsening shortness of breath. PAST MEDICAL HISTORY: * History of valvular heart disease status post aortic and mitral valve replacement with bioprosthesis. * Stroke. * Seizures. MEDICATIONS: Per med rec. ALLERGIES: No known drug allergies. PHYSICAL EXAMINATION: GENERAL: Alert and awake, in no form of cardiopulmonary distress. VITAL SIGNS: Blood pressure 160/100, pulse 125 per minute, and saturation 94%. HEENT: No carotid bruits and no jugular venous distention. CHEST: Bilateral air entry with rhonchi. CARDIOVASCULAR: Normal S1 and S2, irregularly irregular, tachycardic. No murmurs. ABDOMEN: Distended. EXTREMITIES: No peripheral edema. DIAGNOSTIC DATA: White count 12, hemoglobin 14, platelets 166, sodium 143, potassium 3.5, and creatinine is 1.0. Troponin is negative x 2. ASSESSMENT: * Abdominal pain without bowel obstruction. * AFib with RVR, possibly a new diagnosis. * History of valvular heart disease, status post aortic and mitral valve replacement with bioprosthesis. * Hypertension. * Obesity. * History of stroke. RECOMMENDATIONS: * Agree with amiodarone bolus. * Give digoxin. * The patient is okay to take p.o. meds. Start beta-ramila for rate control. * Obtain echo. * Monitor electrolytes. * The patient would need long-term anticoagulation therapy for stroke risk reduction. * Continue telemetry monitoring. Thank you for allowing me to participate in the care of this patient. MD YONI Lemus/ERICKA/KRYSTAL TID: [id number] RECEIPT: [id number]
[2025-04-08] MEDS: METOPROLOL TARTRATE 1MG/1ML-5ML VIAL IV ONE (21:50)
[2025-04-08] MEDS: LABETALOL HCL 5 MG/ML 4ML SYRINGE IV ONE (23:50)
[2025-04-08] MEDS: LABETALOL HCL 20 MG/4 ML VL IV ONE (23:52)
[2025-04-09] VITALS (42 sets, daily range): BP systolic 116–177; BP diastolic 76–103; PULSE 65–104; RESP 12–27; TEMP 98–98.8; O2SAT 89–97
[2025-04-09 05:43] LABS: Hematocrit 38.4 % (41.0-53.0); Hemoglobin 12.7 g/dL (13.5-17.5); Mean Corpuscular Hemoglobin 29.9 pg (28.0-32.0); Mean Corpuscular Volume 90.3 fL (80.0-100.0); Nucleated Red Blood Cells % 0.1 %
[2025-04-09 05:55] LABS: Anion Gap 11 (5-15); Carbon Dioxide 25 mmol/L (20-31)
[2025-04-09 05:58] LABS: Calcium 8.4 mg/dL (8.7-10.4); Chloride 110 mmol/L (98-107); Potassium 3.4 mmol/L (3.5-5.1); Sodium 146 mmol/L (136-145)
[2025-04-09 06:00] LABS: BUN/Creatinine Ratio 11.9 (10.0-20.0); Blood Urea Nitrogen 10 mg/dL (9-23)
[2025-04-09 06:01] LABS: Glucose 114 mg/dL (74-106); Magnesium 1.9 mg/dL (1.6-2.6)
[2025-04-09] MEDS ORDERED: MORPHINE SULFATE 4 MG/ML SYR/VIAL IV PRN (10:00)
--- NOTE | 2025-04-09 15:07 | DVHPN2 ---
Subjective Gastrografin series has been ordered. Patient denies any nausea still has a NG tube. Changes from previous H/P or p: No Changes Objective Vitals Vital Signs Date Time Temp Pulse Resp B/P (MAP) Pulse Ox O2 Delivery O2 Flow Rate FiO2 04/09/25 11:00 82 12 157/89 (111) 96 04/09/25 08:00 98.8 98.8 04/09/25 08:00 Nasal Cannula* 3 32 Intake/Output Intake and Output 04/09/25 07:00 Intake Total 4099.06 ml Output Total 2000 ml Balance 2099.06 ml Intake Oral 0 ml IV Total 4099.06 ml Output Urine Total 850 ml Gastric Drainage Total 1150 ml # Bowel Movements 1 Exam HEENT pupils are reactive Neck is supple CV is S1-S2 irregularly irregular rate and rhythm Diminished breath sounds bases GI positive bowel sounds sluggish Extremity no edema [employer]ENT[employer]IVE no motor deficit Medications Current Medications Medications Dose Ordered Sig/Markos Route Start Time Stop Time Status Last Admin Dose Admin Sodium Chloride 1,000 ml @ 120 mls/hr Q8H20M IV 04/07/25 18:15 04/08/25 19:15 120 MLS/HR Ondansetron HCl 4 mg Q4HP PRN IV 04/07/25 18:15 04/08/25 20:53 4 MG Nitroglycerin 0.4 mg Q5MINP PRN SL 04/07/25 18:15 Morphine Sulfate 2 mg Q30M PRN IV 04/07/25 18:15 Enoxaparin Sodium 110 mg Q12HR SC 04/07/25 22:00 04/09/25 10:10 110 MG Hydralazine HCl 10 mg Q6HP PRN IV 04/07/25 19:30 04/09/25 04:03 10 MG Piperacillin Sod/ Tazobactam Sod 100 ml @ 25 mls/hr Q8HR IV 04/07/25 22:00 04/09/25 06:13 25 MLS/HR Levetiracetam 100 ml @ 400 mls/hr BID IV 04/08/25 00:15 04/09/25 10:02 400 MLS/HR Valproate Sodium 250 mg/Sodium Chloride 52.5 ml @ 52.5 mls/hr BID IV 04/08/25 22:00 04/09/25 10:45 52.5 MLS/HR Metoprolol Tartrate 5 mg Q4HP PRN IV 04/09/25 09:15 Amiodarone HCl 250 ml @ 16.66 mls/ hr Q15H1M IV 04/09/25 15:30 04/09/25 09:11 16.66 MLS/HR Morphine Sulfate 2 mg Q4HPRN PRN IV 04/09/25 10:00 Potassium Chloride 100 ml @ 50 mls/hr Q2H IV 04/09/25 14:45 04/09/25 20:44 UNV Magnesium Sulfate/ Dextrose 100 ml @ 100 mls/hr Q1HR IV 04/09/25 15:00 04/09/25 16:59 UNV Laboratory Results Laboratory Tests 04/09/25 05:30 Chemistry Test 04/08/25 16:44 04/09/25 05:30 Magnesium Level 1.8 mg/dL (1.6-2.6) 1.9 mg/dL (1.6-2.6) Calcium Level 8.4 mg/dL (8.7-10.4) L Phosphorus Level 3.2 mg/dL (2.4-5.1) Urinalysis Test 04/07/25 21:30 Urine Color Yellow (Yellow) Urine Clarity Clear (Clear) Urine pH 6.0 (5.0-9.0) Urine Specific [place] > 1.050 (1.001-1.035) Urine Protein 1+ (Negative) H Urine Ketones 1+ (Negative) H Urine Blood Negative /uL (Negative) Urine Nitrite Negative (Negative) Urine Bilirubin Negative (Negative) Urine Urobilinogen 2 mg/dL (Negative) H Urine Leukocyte Esterase Negative /uL (Negative) Urine RBC <1 /hpf (0 - 3) Urine Microscopic WBC 1 /HPF (0-3) Urine Squamous Epithelial Cells Few /hpf (<5) Urine Bacteria None seen /hpf (None Seen) Urine Glucose Normal mg/dL (Normal) Microbiology Microbiology Date/Time Source Procedure Growth Status 04/08/25 03:32 Nose MRSA Screen - Final Complete 04/07/25 14:24 Blood Blood Culture - Preliminary Resulted Assessment/Plan Assessment/Plan 59-year-old male with a known history of seizure disorder, anxiety and depression disorder, bipolar disorder initially presented to the hospital with the abdominal pain abdominal bloating worsening for a week found to have 1. Small-bowel obstruction 2. New onset of AFib with RVR, currently on IV amiodarone drip 3. Seizure disorder 4. Anxiety and depression disorder 5. Bipolar disorder -continue IV amiodarone, keep NPO NG tube, small bowel series. -continue therapeutic Lovenox for primary prevention of stroke. Plan discussed with: Patient My Orders Orders - CHELO MAZA MD Procedure Category Date Status Time Chest Xray 1 View XY 04/08/25 Resulted 15:27 Insert Midline ORDERS 04/09/25 Transmitted 12:38 Potassium Chl PHA 04/09/25 Logged 20meq/100ml 14:45 Magnesium Sulfate PHA 04/09/25 Logged 1gm/100ml 15:00 Small Bowel Series-W XY 04/09/25 Logged Gastrogra 14:31 Transfer Orders XFER 04/09/25 Transmitted 15:04 Date of Service: Apr 09, 2025 Billing Provider: CHELO MAZA MD Common Visit Codes: NOT BILLABLE CHELO MAZA MD Apr 09, 2025 15:07
[2025-04-09] MEDS: MAGNESIUM SULFATE 1GM/100ML 100 ML IV SCH (15:13)
[2025-04-09] MEDS: MAGNESIUM SULFATE 1GM/100ML 100 ML IV ONE (15:14)
--- NOTE | 2025-04-09 16:03 | DVHPN2 ---
Progress Note - Surgical Date Seen: Apr 09, 2025 Post op day Post op day: 0 Subjective Patient reports: Feels better (Feeling better had 2 bowel movements, no abdominal pain complaints) Review of Systems: Deferred Objective Vital signs Vital Sign Date Time Temp Pulse Resp B/P (MAP) Pulse Ox O2 Delivery O2 Flow Rate FiO2 04/09/25 15:00 80 20 144/88 (106) 04/09/25 14:30 94 04/09/25 12:00 98.0 98.0 04/09/25 08:00 Nasal Cannula* 3 32 Total Intake and Output 04/08/25 04/08/25 04/09/25 15:00 23:00 07:00 Intake Total 1293.28 ml 1454.14 ml 1351.64 ml Output Total 950 ml 1050 ml Balance 1293.28 ml 504.14 ml 301.64 ml Medications Current Medications Medications Dose Ordered Sig/Markos Route Start Time Stop Time Status Last Admin Dose Admin Sodium Chloride 1,000 ml @ 120 mls/hr Q8H20M IV 04/07/25 18:15 04/09/25 09:02 120 MLS/HR Ondansetron HCl 4 mg Q4HP PRN IV 04/07/25 18:15 04/08/25 20:53 4 MG Nitroglycerin 0.4 mg Q5MINP PRN SL 04/07/25 18:15 Morphine Sulfate 2 mg Q30M PRN IV 04/07/25 18:15 Enoxaparin Sodium 110 mg Q12HR SC 04/07/25 22:00 04/09/25 10:10 110 MG Hydralazine HCl 10 mg Q6HP PRN IV 04/07/25 19:30 04/09/25 04:03 10 MG Piperacillin Sod/ Tazobactam Sod 100 ml @ 25 mls/hr Q8HR IV 04/07/25 22:00 04/09/25 15:13 25 MLS/HR Levetiracetam 100 ml @ 400 mls/hr BID IV 04/08/25 00:15 04/09/25 10:02 400 MLS/HR Valproate Sodium 250 mg/Sodium Chloride 52.5 ml @ 52.5 mls/hr BID IV 04/08/25 22:00 04/09/25 10:45 52.5 MLS/HR Metoprolol Tartrate 5 mg Q4HP PRN IV 04/09/25 09:15 Amiodarone HCl 250 ml @ 16.66 mls/ hr Q15H1M IV 04/09/25 15:30 04/09/25 09:11 16.66 MLS/HR Morphine Sulfate 2 mg Q4HPRN PRN IV 04/09/25 10:00 Potassium Chloride 100 ml @ 50 mls/hr Q2H IV 04/09/25 14:45 04/09/25 20:44 Magnesium Sulfate/ Dextrose 100 ml @ 100 mls/hr Q1HR IV 04/09/25 15:00 04/09/25 16:59 04/09/25 15:13 100 MLS/HR Laboratory Laboratory Tests 04/09/25 05:30 Test 04/09/25 05:30 Range/Units Serum Glucose 114 H 74-106 mg/dL Microbiology Date/Time Source Procedure Growth Status 04/08/25 03:32 Nose MRSA Screen - Final Complete 04/07/25 14:24 Blood Blood Culture - Preliminary Resulted Examination: GENERAL:Normal (AAO x3), NECK:Normal (No icterus, neck supple), LUNGS:Normal (Nonlabored breathing with symmetric expansion), ABDOMEN:Normal (Globose, soft, depressible, nontender) Labs and/or images reviewed: Labs reviewed by me (No leukocytosis) Problem List/Assessment/Plan Assessment and Plan Mr. Thomas is a 59-year-old male who presented with a small-bowel obstruction. CT shows distended stomach and proximal loops of small bowel with a transition point low in the right lower quadrant. NG tube was placed yesterday and 6 L of fluid was evacuated. Patient feeling much better this morning and had a bowel movement overnight, although small. We will continue with small bowel decompression with a NG tube to low intermittent suctioned and bowel rest. Likely small bowel follow-through tomorrow morning. Interval: Patient had 2 more bowel movements overnight, nothing coming out of the NG tube, and feeling good. We will proceed with small bowel follow-through. 1. Small bowel follow-through ordered for today 2. Once patient starts having bowel movements and passing the contrast, he can be started on a clear liquid diet and discontinue the NG tube Plan discussed with Plan discussed with: Patient Visit Coding Surgery Date of Service if different f: Apr 09, 2025 Billing Provider: KAIDEN WOODWARD MD Surgery Visit Codes: [id number] INP/OBS CARE(HIGH) KAIDEN WOODWARD MD Apr 09, 2025 16:02
[2025-04-09] MEDS: POTASSIUM CHL 20MEQ/100ML 100 ML IV SCH (16:04)
[2025-04-10] VITALS (26 sets, daily range): BP systolic 131–185; BP diastolic 68–116; PULSE 77–116; RESP 12–31; TEMP 97.7–99.4; O2SAT 89–100
[2025-04-10 06:04] LABS: Anion Gap 9 (5-15); Carbon Dioxide 22 mmol/L (20-31); Potassium 3.5 mmol/L (3.5-5.1); Sodium 145 mmol/L (136-145)
[2025-04-10 06:07] LABS: Chloride 114 mmol/L (98-107)
[2025-04-10 06:08] LABS: Calcium 8.3 mg/dL (8.7-10.4)
[2025-04-10 06:10] LABS: BUN/Creatinine Ratio 6.4 (10.0-20.0); Glucose 86 mg/dL (74-106); Magnesium 2.2 mg/dL (1.6-2.6)
[2025-04-10 06:22] LABS: Blood Urea Nitrogen 5 mg/dL (9-23)
--- NOTE | 2025-04-10 09:23 | DVHPN2 ---
Progress Note - Surgical Date Seen: Apr 10, 2025 Post op day Post op day: 0 Subjective Patient reports: No new complaints (Patient feeling good from an abdominal standpoint, had a bowel movement yesterday.) Review of Systems: Deferred Objective Vital signs Vital Sign Date Time Temp Pulse Resp B/P (MAP) Pulse Ox O2 Delivery O2 Flow Rate FiO2 04/10/25 08:00 99.4 116 25 149/84 (105) 93 99.4 04/10/25 07:45 Room Air* 0 21 Total Intake and Output 04/09/25 04/09/25 04/10/25 15:00 23:00 07:00 Intake Total 1287.46 ml 1695.78 ml 1218.28 ml Output Total 1300 ml Balance 1287.46 ml 1695.78 ml -81.72 ml Medications Current Medications Medications Dose Ordered Sig/Markos Route Start Time Stop Time Status Last Admin Dose Admin Sodium Chloride 1,000 ml @ 120 mls/hr Q8H20M IV 04/07/25 18:15 04/10/25 06:11 120 MLS/HR Ondansetron HCl 4 mg Q4HP PRN IV 04/07/25 18:15 04/08/25 20:53 4 MG Nitroglycerin 0.4 mg Q5MINP PRN SL 04/07/25 18:15 Morphine Sulfate 2 mg Q30M PRN IV 04/07/25 18:15 Enoxaparin Sodium 110 mg Q12HR SC 04/07/25 22:00 04/09/25 21:49 110 MG Hydralazine HCl 10 mg Q6HP PRN IV 04/07/25 19:30 04/10/25 06:10 10 MG Piperacillin Sod/ Tazobactam Sod 100 ml @ 25 mls/hr Q8HR IV 04/07/25 22:00 04/10/25 06:10 25 MLS/HR Levetiracetam 100 ml @ 400 mls/hr BID IV 04/08/25 00:15 04/09/25 21:48 400 MLS/HR Valproate Sodium 250 mg/Sodium Chloride 52.5 ml @ 52.5 mls/hr BID IV 04/08/25 22:00 04/09/25 21:48 52.5 MLS/HR Metoprolol Tartrate 5 mg Q4HP PRN IV 04/09/25 09:15 Amiodarone HCl 250 ml @ 16.66 mls/ hr Q15H1M IV 04/09/25 15:30 04/10/25 06:11 16.66 MLS/HR Morphine Sulfate 2 mg Q4HPRN PRN IV 04/09/25 10:00 Laboratory Laboratory Tests 04/10/25 05:27 04/09/25 05:30 Test 04/10/25 05:27 Range/Units Serum Glucose 86 74-106 mg/dL Microbiology Date/Time Source Procedure Growth Status 04/08/25 03:32 Nose MRSA Screen - Final Complete 04/07/25 14:24 Blood Blood Culture - Preliminary Resulted Examination: GENERAL:Normal (AAO x3), HEENT:Normal (NG tube in place with 200 mL of output), LUNGS:Normal (Nonlabored breathing with symmetric expansion), ABDOMEN:Normal (Nondistended, soft, depressible, nontender) Problem List/Assessment/Plan Assessment and Plan Mr. Thomas is a 59-year-old male who presented with a small-bowel obstruction. CT shows distended stomach and proximal loops of small bowel with a transition point low in the right lower quadrant. NG tube was placed yesterday and 6 L of fluid was evacuated. Patient feeling much better this morning and had a bowel movement overnight, although small. We will continue with small bowel decompression with a NG tube to low intermittent suctioned and bowel rest. Likely small bowel follow-through tomorrow morning. Interval: Still pending small bowel follow-through, it was ordered yesterday. 1. Small bowel follow-through 2. Once patient starts having bowel movements and passing the contrast, he can be started on a clear liquid diet and discontinue the NG tube Plan discussed with Plan discussed with: Patient Visit Coding Surgery Date of Service if different f: Apr 10, 2025 Billing Provider: KAIDEN WOODWARD MD Surgery Visit Codes: [id number] INP/OBS CARE(HIGH) KAIDEN WOODWARD MD Apr 10, 2025 09:23
--- NOTE | 2025-04-10 10:28 | ECG ---
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
--- NOTE | 2025-04-10 10:28 | ECG ---
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
--- NOTE | 2025-04-10 10:29 | ECG ---
[facility] Test Date: 2025-04-07 Test Time: 16:34:31 Pat Name: KARINA CURRIE Department: ED Room: 0271T Gender: M Licensed Weigher: JASSON : 1965 Requested By: YESSICA ORR Order Number: [id number] Reading MD: Miguel A Collins Measurements Intervals [place] Rate: 120 P: 0 VT: 0 QRS: 90 QRSD: 100 T: -42 QT: 316 QTc: 447 Interpretive Statements Atrial fibrillation Borderline right axis deviation Probable LVH with secondary repol abnrm Electronically Signed On 04-12-2025 19:10:14 PST by Miguel A Collins Please click the below link to view image of tracing.
[2025-04-10] MEDS: GASTROGRAFIN 120 ML SOL ONE (10:40)
[2025-04-10] MEDS: PIPERACILLIN-TAZOB 3.375GM 100 ML IV SCH (11:52)
--- NOTE | 2025-04-10 15:34 | DVHPN2 ---
Subjective Patient is currently getting Gastrografin series, still has a NG tube which will be clamped. Currently on amiodarone drip. Changes from previous H/P or p: No Changes Objective Vitals Vital Signs Date Time Temp Pulse Resp B/P (MAP) Pulse Ox O2 Delivery O2 Flow Rate FiO2 04/10/25 12:56 175/100 04/10/25 11:00 111 20 95 04/10/25 08:00 99.4 99.4 04/10/25 07:45 Room Air* 0 21 Intake/Output Intake and Output 04/10/25 07:00 Intake Total 4201.52 ml Output Total 1300 ml Balance 2901.52 ml Intake Oral 0 ml IV Total 4201.52 ml Output Urine Total 1050 ml Gastric Drainage Total 250 ml # Voids 2 # Bowel Movements 1 Exam HEENT pupils are reactive Neck is supple CV is S1-S2 irregularly irregular rate and rhythm Diminished breath sounds bases GI positive bowel sounds sluggish Extremity 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 Medications Current Medications Medications Dose Ordered Sig/Markos Route Start Time Stop Time Status Last Admin Dose Admin Sodium Chloride 1,000 ml @ 120 mls/hr Q8H20M IV 04/07/25 18:15 04/10/25 13:20 120 MLS/HR Ondansetron HCl 4 mg Q4HP PRN IV 04/07/25 18:15 04/08/25 20:53 4 MG Nitroglycerin 0.4 mg Q5MINP PRN SL 04/07/25 18:15 Morphine Sulfate 2 mg Q30M PRN IV 04/07/25 18:15 Enoxaparin Sodium 110 mg Q12HR SC 04/07/25 22:00 04/10/25 10:14 110 MG Hydralazine HCl 10 mg Q6HP PRN IV 04/07/25 19:30 04/10/25 12:56 10 MG Levetiracetam 100 ml @ 400 mls/hr BID IV 04/08/25 00:15 04/10/25 10:14 400 MLS/HR Valproate Sodium 250 mg/Sodium Chloride 52.5 ml @ 52.5 mls/hr BID IV 04/08/25 22:00 04/10/25 10:15 52.5 MLS/HR Metoprolol Tartrate 5 mg Q4HP PRN IV 04/09/25 09:15 Amiodarone HCl 250 ml @ 16.66 mls/ hr Q15H1M IV 04/09/25 15:30 04/10/25 06:11 16.66 MLS/HR Morphine Sulfate 2 mg Q4HPRN PRN IV 04/09/25 10:00 Piperacillin Sod/ Tazobactam Sod 100 ml @ 25 mls/hr Q6H IV 04/10/25 12:00 04/10/25 11:52 25 MLS/HR Laboratory Results Laboratory Tests 04/09/25 05:30 04/10/25 05:27 Chemistry Test 04/10/25 05:27 Calcium Level 8.3 mg/dL (8.7-10.4) L Magnesium Level 2.2 mg/dL (1.6-2.6) Urinalysis Test 04/07/25 21:30 Urine Color Yellow (Yellow) Urine Clarity Clear (Clear) Urine pH 6.0 (5.0-9.0) Urine Specific [place] > 1.050 (1.001-1.035) Urine Protein 1+ (Negative) H Urine Ketones 1+ (Negative) H Urine Blood Negative /uL (Negative) Urine Nitrite Negative (Negative) Urine Bilirubin Negative (Negative) Urine Urobilinogen 2 mg/dL (Negative) H Urine Leukocyte Esterase Negative /uL (Negative) Urine RBC <1 /hpf (0 - 3) Urine Microscopic WBC 1 /HPF (0-3) Urine Squamous Epithelial Cells Few /hpf (<5) Urine Bacteria None seen /hpf (None Seen) Urine Glucose Normal mg/dL (Normal) Microbiology Microbiology Date/Time Source Procedure Growth Status 04/08/25 03:32 Nose MRSA Screen - Final Complete 04/07/25 14:24 Blood Blood Culture - Preliminary Resulted Assessment/Plan Assessment/Plan 59-year-old male with a known history of seizure disorder, anxiety and depression disorder, bipolar disorder initially presented to the hospital with the abdominal pain abdominal bloating worsening for a week found to have 1. Small-bowel obstruction 2. New onset of AFib with RVR, currently on IV amiodarone drip 3. Seizure disorder 4. Anxiety and depression disorder 5. Bipolar disorder -continue IV amiodarone, keep NPO NG tube, small bowel series pending. -continue therapeutic Lovenox for primary prevention of stroke. Plan discussed with: Patient, Spouse Date of Service: Apr 10, 2025 Billing Provider: CHELO MAZA MD Common Visit Codes: NOT BILLABLE CHELO MAZA MD Apr 10, 2025 15:34
--- NOTE | 2025-04-10 16:10 | DVH ---
SMALL BOWEL FOLLOW-THROUGH REASON FOR EXAMINATION: Small-bowel obstruction. Abdominal pain. CONTRAST: 240 cc Gastrografin by nasogastric tube IMAGES: 4 frontal images of the abdomen are submitted for review. FINDINGS: The football scout image demonstrates several mildly distended and gas-filled loops of small bowel in the left abdomen. Contrast reaches the distal small bowel by 1.5 hours. On the 4 hour film, there is contrast noted in the descending colon and sigmoid colon. IMPRESSION: No evidence of bowel obstruction on the current study.
[2025-04-10] MEDS: LIDOCAINE 5% TOPICAL PATCH TOP SCH (21:21)
[2025-04-10] MEDS: METOPROLOL TARTRATE 1MG/1ML-5ML VIAL IV PRN (21:24)
[2025-04-11] VITALS (23 sets, daily range): BP systolic 127–180; BP diastolic 76–109; PULSE 67–121; RESP 16–35; TEMP 97.8–99.9; O2SAT 89–99
[2025-04-11 05:31] LABS: Hematocrit 36.0 % (41.0-53.0); Hemoglobin 12.1 g/dL (13.5-17.5); Mean Corpuscular Hemoglobin 30.0 pg (28.0-32.0); Mean Corpuscular Volume 89.4 fL (80.0-100.0); Nucleated Red Blood Cells % 0.2 %
[2025-04-11 05:42] LABS: Sodium 144 mmol/L (136-145)
[2025-04-11 05:43] LABS: Anion Gap 11 (5-15); Carbon Dioxide 21 mmol/L (20-31)
[2025-04-11 05:48] LABS: BUN/Creatinine Ratio 7.3 (10.0-20.0); Glucose 94 mg/dL (74-106); Magnesium 2.0 mg/dL (1.6-2.6)
[2025-04-11 05:50] LABS: Blood Urea Nitrogen 6 mg/dL (9-23); Calcium 8.7 mg/dL (8.7-10.4); Chloride 112 mmol/L (98-107); Potassium 3.2 mmol/L (3.5-5.1)
[2025-04-11] MEDS ORDERED: MORPHINE SULFATE 4 MG/ML SYR/VIAL IV PRN (10:15)
[2025-04-11] MEDS: AMIODARONE HCL 200 MG TAB PO SCH (10:53)
[2025-04-11] MEDS: METOPROLOL TARTRATE 50 MG TAB PO SCH (10:53)
--- NOTE | 2025-04-11 12:16 | DVHPN2 ---
Progress Note - Surgical Date Seen: Apr 11, 2025 Post op day Post op day: 0 Subjective Patient reports: Feels better (Tolerated clear liquid diet, having multiple bowel movements, no abdominal pain complaints.) Review of Systems: Deferred Objective Vital signs Vital Sign Date Time Temp Pulse Resp B/P (MAP) Pulse Ox O2 Delivery O2 Flow Rate FiO2 04/11/25 12:03 85 127/97 04/11/25 12:00 97.8 16 95 97.8 04/11/25 08:00 Room Air* 0 21 Total Intake and Output 04/10/25 04/10/25 04/11/25 14:59 22:59 06:59 Intake Total 1295.54 ml 1393.28 ml 1745.78 ml Output Total 1575 ml 900 ml Balance 1295.54 ml -181.72 ml 845.78 ml Medications Current Medications Medications Dose Ordered Sig/Markos Route Start Time Stop Time Status Last Admin Dose Admin Sodium Chloride 1,000 ml @ 120 mls/hr Q8H20M IV 04/07/25 18:15 04/11/25 10:56 120 MLS/HR Ondansetron HCl 4 mg Q4HP PRN IV 04/07/25 18:15 04/08/25 20:53 4 MG Nitroglycerin 0.4 mg Q5MINP PRN SL 04/07/25 18:15 Enoxaparin Sodium 110 mg Q12HR SC 04/07/25 22:00 04/11/25 10:55 110 MG Hydralazine HCl 10 mg Q6HP PRN IV 04/07/25 19:30 04/11/25 00:08 10 MG Levetiracetam 100 ml @ 400 mls/hr BID IV 04/08/25 00:15 04/11/25 10:56 400 MLS/HR Valproate Sodium 250 mg/Sodium Chloride 52.5 ml @ 52.5 mls/hr BID IV 04/08/25 22:00 04/11/25 10:56 52.5 MLS/HR Metoprolol Tartrate 5 mg Q4HP PRN IV 04/09/25 09:15 04/10/25 21:24 5 MG Morphine Sulfate 2 mg Q4HPRN PRN IV 04/09/25 10:00 Piperacillin Sod/ Tazobactam Sod 100 ml @ 25 mls/hr Q6H IV 04/10/25 12:00 04/11/25 12:03 25 MLS/HR Metoprolol Tartrate 50 mg BID PO 04/11/25 10:00 04/11/25 10:53 50 MG Amiodarone HCl 200 mg Q12HR PO 04/11/25 10:00 04/11/25 10:53 200 MG Morphine Sulfate 2 mg Q30M PRN IV 04/11/25 10:15 Lidocaine 1 patch DAILY@2100 TOP 04/11/25 21:00 Apixaban 5 mg BID PO 04/11/25 22:00 UNV Laboratory Laboratory Tests 04/11/25 05:02 Test 04/11/25 05:02 Range/Units Serum Glucose 94 74-106 mg/dL Microbiology Date/Time Source Procedure Growth Status 04/08/25 03:32 Nose MRSA Screen - Final Complete 04/07/25 14:24 Blood Blood Culture - Preliminary Resulted Examination: GENERAL:Normal (AAO x3), LUNGS:Normal (Nonlabored breathing with symmetric expansion), ABDOMEN:Normal (Nondistended, soft, depressible, nontender) Labs and/or images reviewed: Labs reviewed by me Problem List/Assessment/Plan Assessment and Plan Mr. Thomas is a 59-year-old male who presented with a small-bowel obstruction. CT shows distended stomach and proximal loops of small bowel with a transition point low in the right lower quadrant. NG tube was placed yesterday and 6 L of fluid was evacuated. Patient feeling much better this morning and had a bowel movement overnight, although small. We will continue with small bowel decompression with a NG tube to low intermittent suctioned and bowel rest. Likely small bowel follow-through tomorrow morning. Interval: Small bowel follow-through was done yesterday, and does not show any evidence of bowel obstruction. Patient has been having multiple bowel movements and tolerated clear liquid diet. 1. Discontinue NG tube 2. Advance diet 3. Cleared for discharge if tolerates diet advancement My Orders My Orders Orders - KAIDEN WOODWARD MD Procedure Category Date Status Time Discontinue Ng ORDERS 04/11/25 Transmitted 11:34 Full Liq Diet DIET 04/11/25 Transmitted Lunch Advance Diet As GRAY 04/11/25 In Process Tolerated 11:34 Plan discussed with Plan discussed with: Patient Visit Coding Surgery Date of Service if different f: Apr 11, 2025 Billing Provider: KAIDEN WOODWARD MD Surgery Visit Codes: [id number] INP/OBS CARE(HIGH) KAIDEN WOODWARD MD Apr 11, 2025 12:16
--- NOTE | 2025-04-11 15:42 | DVHPN2 ---
Subjective Patient is currently tolerating full liquid diet, possible discharge plan in a.m.. Changes from previous H/P or p: No Changes Objective Vitals Vital Signs Date Time Temp Pulse Resp B/P (MAP) Pulse Ox O2 Delivery O2 Flow Rate FiO2 04/11/25 12:03 85 127/97 04/11/25 12:00 97.8 16 95 97.8 04/11/25 08:00 Room Air* 0 21 Intake/Output Intake and Output 04/11/25 07:00 Intake Total 4409.60 ml Output Total 2475 ml Balance 1934.60 ml Intake Oral 500 ml IV Total 3909.60 ml Output Urine Total 2450 ml Gastric Drainage Total 25 ml # Voids 4 # Bowel Movements 1 Exam HEENT pupils are reactive Neck is supple CV is S1-S2 irregularly irregular rate and rhythm Diminished breath sounds bases GI positive bowel sounds sluggish 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 Medications Current Medications Medications Dose Ordered Sig/Markos Route Start Time Stop Time Status Last Admin Dose Admin Sodium Chloride 1,000 ml @ 120 mls/hr Q8H20M IV 04/07/25 18:15 04/11/25 10:56 120 MLS/HR Ondansetron HCl 4 mg Q4HP PRN IV 04/07/25 18:15 04/08/25 20:53 4 MG Nitroglycerin 0.4 mg Q5MINP PRN SL 04/07/25 18:15 Hydralazine HCl 10 mg Q6HP PRN IV 04/07/25 19:30 04/11/25 00:08 10 MG Levetiracetam 100 ml @ 400 mls/hr BID IV 04/08/25 00:15 04/11/25 10:56 400 MLS/HR Valproate Sodium 250 mg/Sodium Chloride 52.5 ml @ 52.5 mls/hr BID IV 04/08/25 22:00 04/11/25 10:56 52.5 MLS/HR Metoprolol Tartrate 5 mg Q4HP PRN IV 04/09/25 09:15 04/10/25 21:24 5 MG Morphine Sulfate 2 mg Q4HPRN PRN IV 04/09/25 10:00 Piperacillin Sod/ Tazobactam Sod 100 ml @ 25 mls/hr Q6H IV 04/10/25 12:00 04/11/25 12:03 25 MLS/HR Metoprolol Tartrate 50 mg BID PO 04/11/25 10:00 04/11/25 10:53 50 MG Amiodarone HCl 200 mg Q12HR PO 04/11/25 10:00 04/11/25 10:53 200 MG Morphine Sulfate 2 mg Q30M PRN IV 04/11/25 10:15 Lidocaine 1 patch DAILY@2100 TOP 04/11/25 21:00 Apixaban 5 mg BID PO 04/11/25 22:00 Laboratory Results Laboratory Tests 04/11/25 05:02 Chemistry Test 04/11/25 05:02 Calcium Level 8.7 mg/dL (8.7-10.4) Magnesium Level 2.0 mg/dL (1.6-2.6) Urinalysis Test 04/07/25 21:30 Urine Color Yellow (Yellow) Urine Clarity Clear (Clear) Urine pH 6.0 (5.0-9.0) Urine Specific [place] > 1.050 (1.001-1.035) Urine Protein 1+ (Negative) H Urine Ketones 1+ (Negative) H Urine Blood Negative /uL (Negative) Urine Nitrite Negative (Negative) Urine Bilirubin Negative (Negative) Urine Urobilinogen 2 mg/dL (Negative) H Urine Leukocyte Esterase Negative /uL (Negative) Urine RBC <1 /hpf (0 - 3) Urine Microscopic WBC 1 /HPF (0-3) Urine Squamous Epithelial Cells Few /hpf (<5) Urine Bacteria None seen /hpf (None Seen) Urine Glucose Normal mg/dL (Normal) Microbiology Microbiology Date/Time Source Procedure Growth Status 04/08/25 03:32 Nose MRSA Screen - Final Complete 04/07/25 14:24 Blood Blood Culture - Preliminary Resulted Assessment/Plan Assessment/Plan 59-year-old male with a known history of seizure disorder, anxiety and depression disorder, bipolar disorder initially presented to the hospital with the abdominal pain abdominal bloating worsening for a week found to have 1. Small-bowel obstruction, resolved 2. New onset of AFib with RVR, currently on p.o. amiodarone 3. Seizure disorder 4. Anxiety and depression disorder 5. Bipolar disorder -diet as tolerated, start Eliquis -likely discharge plan in next 24 hours. Plan discussed with: Patient, Spouse My Orders Orders - CHELO MAZA MD Procedure Category Date Status Time Morphine Sulfate PHA 04/11/25 In Process Injection 10:15 Potassium Chl PHA 04/11/25 In Process 20meq/100ml 14:45 Date of Service: Apr 11, 2025 Billing Provider: CHELO MAZA MD Common Visit Codes: NOT BILLABLE CHELO MAZA MD Apr 11, 2025 15:42
[2025-04-11] MEDS: POTASSIUM EFFERVESENT TAB 25 MEQ PO ONE (16:21)
[2025-04-11] MEDS: POTASSIUM CHL 20MEQ/100ML 100 ML IV ONE (16:22)
[2025-04-11] MEDS: LIDOCAINE 5% TOPICAL PATCH TOP SCH (21:32)
[2025-04-11] MEDS: APIXABAN 5 MG TAB PO SCH (21:48)
[2025-04-12] VITALS (7 sets, daily range): BP systolic 129–170; BP diastolic 82–117; PULSE 77–98; RESP 14–20; TEMP 36.4; O2SAT 94–96
[2025-04-12] MEDS ORDERED: APIX5TAB PO (15:11)
[2025-04-12] MEDS ORDERED: MET50T PO (15:11)
[2025-04-12] MEDS ORDERED: AMIO200T13 PO (15:11)
--- NOTE | 2025-04-12 15:16 | DVHDS2 ---
Discharge Summary Date of Admission Apr 07, 2025 at 18:04 Date of Discharge: Apr 12, 2025 Labs/Diagnostic Data: Laboratory Results Test 04/11/25 05:02 04/09/25 05:30 04/08/25 02:19 04/07/25 21:30 White Blood Count 12.8 10^3/uL (4.4-10.8) Red Blood Count 4.03 10^6/uL (4.5-5.90) Hemoglobin 12.1 g/dL (13.5-17.5) Hematocrit 36.0 % (41.0-53.0) Mean Corpuscular Volume 89.4 fL (80.0-100.0) Mean Corpuscular Hemoglobin 30.0 pg (28.0-32.0) Mean Corpuscular Hemoglobin Concent 33.6 g/dL (32.0-36.0) Red Cell Distribution Width 15.9 % (11.8-14.3) Platelet Count 180 10^3/uL (140-450) Mean Platelet Volume 9.7 fL (6.9-10.8) Neutrophils (%) (Auto) 77.3 % (37.0-80.0) Lymphocytes (%) (Auto) 11.9 % (10.0-50.0) Monocytes (%) (Auto) 9.9 % (0.0-12.0) Eosinophils (%) (Auto) 0.5 % (0.0-7.0) Basophils (%) (Auto) 0.4 % (0.0-2.0) Neutrophils # (Auto) 9.9 10 ^3/uL (1.6-8.6) Lymphocytes # (Auto) 1.5 10 ^3/uL (0.4-5.4) Monocytes # (Auto) 1.3 10 ^3/uL (0-1.3) Eosinophils # (Auto) 0.1 10 ^3/uL (0-0.8) Basophils # (Auto) 0 10 ^3/uL (0-0.2) Nucleated Red Blood Cells 0.2 % Sodium Level 144 mmol/L (136-145) Potassium Level 3.2 mmol/L (3.5-5.1) Chloride Level 112 mmol/L (98-107) Carbon Dioxide Level 21 mmol/L (20-31) Anion Gap 11 (5-15) Blood Urea Nitrogen 6 mg/dL (9-23) Creatinine 0.82 mg/dL (0.700-1.30) Glomerular Filtration Rate Calc 102 mL/min (>90) BUN/Creatinine Ratio 7.3 (10.0-20.0) Serum Glucose 94 mg/dL (74-106) Calcium Level 8.7 mg/dL (8.7-10.4) Magnesium Level 2.0 mg/dL (1.6-2.6) Lactic Acid Level 1.3 mmol/L (0.4-2.0) Phosphorus Level 3.2 mg/dL (2.4-5.1) Total Bilirubin 1.2 mg/dL (0.2-1.0) Aspartate Amino Transferase (AST) 43 U/L (13-40) Alanine Aminotransferase (ALT) 18 U/L (7-40) Alkaline Phosphatase 99 U/L (46-116) Total Protein 6.7 g/dL (5.7-8.2) Albumin 3.9 g/dL (3.2-4.8) Urine Color Yellow (Yellow) Urine Clarity Clear (Clear) Urine pH 6.0 (5.0-9.0) Urine Specific [place] > 1.050 (1.001-1.035) Urine Protein 1+ (Negative) Urine Ketones 1+ (Negative) Urine Blood Negative /uL (Negative) Urine Nitrite Negative (Negative) Urine Bilirubin Negative (Negative) Urine Urobilinogen 2 mg/dL (Negative) Urine Leukocyte Esterase Negative /uL (Negative) Urine RBC <1 /hpf (0 - 3) Urine Microscopic WBC 1 /HPF (0-3) Urine Squamous Epithelial Cells Few /hpf (<5) Urine Bacteria None seen /hpf (None Seen) Urine Glucose Normal mg/dL (Normal) Test 04/07/25 17:58 04/07/25 14:20 Troponin I High Sensitivity 16 ng/L (</=54) Lipase 34 U/L (12-53) Other Laboratory Tests 04/11/25 05:02 Brief Hx & Hospital Course: 59-year-old male with a known history of seizure disorder, anxiety and depression disorder, bipolar disorder initially presented to the hospital with the abdominal pain abdominal bloating worsening for a week found to have small- bowel obstruction. Patient was placed on NG tube kept NPO. Small-bowel series was done which shows no evidence of obstruction. Patient's hospital course was eventful for new onset of AFib with a RVR requiring IV amiodarone drip. Cardiology was consulted. Currently patient is in normal sinus rhythm. Patient does have known history of seizure disorder anxiety and depression disorder and bipolar disorder currently compensated. Patient is being discharged under stable condition. Patient will be on Eliquis for primary prevention of stroke patient is currently understand verbalized understanding and agreeable to plan. Risks benefits and alternatives of Eliquis including life-threatening bleeding disability explained to the patient in detail who understand verbalized understanding and agreeable to plan. Condition at Discharge: Stable Final Diagnosis/Problems List 59-year-old male with a known history of seizure disorder, anxiety and depression disorder, bipolar disorder initially presented to the hospital with the abdominal pain abdominal bloating worsening for a week found to have 1. Small-bowel obstruction, resolved 2. New onset of AFib with RVR, currently on p.o. amiodarone 3. Seizure disorder 4. Anxiety and depression disorder 5. Bipolar disorder -diet as tolerated, start Eliquis Discharge Disposition: Home SNF Discharge Will this Physician continue t: No Discharge Instruct/Medications Diet: Cardiac 2g Na,low cholest Activity: No Restrictions, As Tolerated Follow Up/Referral: Please follow up with the PCP in one week Follow up with the Cardiology in 1-[address] Muhammad. Medications: Amiodarone, metoprolol tartrate, Eliquis as prescribed. New Medications: Amiodarone HCl (Amiodarone HCl) 200 Mg Tab 200 MG PO Q12HR for 30 Days, #60 TAB Apixaban Base (Eliquis) 5 Mg Tab 5 MG PO BID, #60 TAB Metoprolol Tartrate (Lopressor Tablet) 50 Mg Tb 50 MG PO BID, #60 TAB Continued Medications: Albuterol Sulfate (Albuterol Sulfate Hfa) 108 Mcg/Act Aer INH Atorvastatin Calcium (Atorvastatin Calcium) 20 Mg Tab 1 TAB PO DAILY Benztropine Mesylate (Benztropine Mesylate) 1 Mg Tab TAB PO Cholecalciferol (Vitamin D3) 2,000 Unit Tab 1 TAB PO DAILY, #30 TAB 5 Refills Clonidine Hydrochloride (Clonidine Hcl) 0.1 Mg Tab 1 TAB PO TID Cyclobenzaprine HCl (Cyclobenzaprine Hydrochlo) 10 Mg Tab 1 TAB PO BIDPRN PRN for FOR MUSCLE SPASM Divalproex Sodium (Divalproex Sodium Dr) 500 Mg Tab TAB PO Fluticasone-Salmeterol (Wixela Inhub 100-50 Mcg/Dose) 1 Aer Aer 1 AER IN, AER Furosemide (Furosemide) 40 Mg Tab 1 TAB PO BID Hydroxyzine Hcl (Hydroxyzine Hcl) 25 Mg Tab 1 TAB PO BID Lamotrigine (Lamotrigine) 200 Mg Tab 1 TAB PO BID Levetiracetam (Levetiracetam) 1,000 Mg Tab 1 TAB PO BID Naloxone HCl (Naloxone HCl) 4 Mg/10 Ml Inj 4 MG IJ, INJ Potassium Chloride (Potassium Chloride ER) 20 Meq Tab 1 TAB PO BID Propranolol HCl (Propranolol Hydrochloride) 20 Mg Tab TAB PO Quetiapine Fumerate (Quetiapine Fumarate) 200 Mg Tab 1 TAB PO Sertraline Hcl (Sertraline Hcl) 25 Mg Tab TAB PO Discontinued Medications: Aspirin (Aspirin) 325 Mg Tab 325 MG PO DAILY for 30 Days, MG Scheduled Amiodarone HCl (Amiodarone HCl), 200 MG PO Q12HR Apixaban Base (Eliquis), 5 MG PO BID Aspirin (Aspirin), 325 MG PO DAILY, (Reported) Atorvastatin Calcium (Atorvastatin Calcium), 1 TAB PO DAILY, (Reported) Cholecalciferol (Vitamin D3), 1 TAB PO DAILY, (Reported) Clonidine Hydrochloride (Clonidine Hcl), 1 TAB PO TID, (Reported) Furosemide (Furosemide), 1 TAB PO BID, (Reported) Hydroxyzine Hcl (Hydroxyzine Hcl), 1 TAB PO BID, (Reported) Lamotrigine (Lamotrigine), 1 TAB PO BID, (Reported) Levetiracetam (Levetiracetam), 1 TAB PO BID, (Reported) Metoprolol Tartrate (Lopressor Tablet), 50 MG PO BID Potassium Chloride (Potassium Chloride ER), 1 TAB PO BID, (Reported) Scheduled PRN Cyclobenzaprine HCl (Cyclobenzaprine Hydrochlo), 1 TAB PO BIDPRN PRN for FOR MUSCLE SPASM, (Reported) Miscellaneous Medications Albuterol Sulfate (Albuterol Sulfate Hfa), INH, (Reported) Benztropine Mesylate (Benztropine Mesylate), TAB PO, (Reported) Divalproex Sodium (Divalproex Sodium Dr), TAB PO, (Reported) Fluticasone-Salmeterol (Wixela Inhub 100-50 Mcg/Dose), 1 AER IN, (Reported) Naloxone HCl (Naloxone HCl), 4 MG IJ, (Reported) Propranolol HCl (Propranolol Hydrochloride), TAB PO, (Reported) Quetiapine Fumerate (Quetiapine Fumarate), 1 TAB PO, (Reported) Sertraline Hcl (Sertraline Hcl), TAB PO, (Reported) Discharge Statement: "Patient was advised to return to the ER or call 911 if any headaches, dizziness, shortness of breath, chest pain, abdominal pain, bleeding, fevers, or worsening of medical condition. Patient was counseled about treatment plan, medications, possible side effects, patientverbalized understanding. All questions were answered to the best of my ability. This discharge took greater then 30 minutes in planning, reviewing documentation, counseling the patient, and discussing with other team members." ASSESSMENT ASSESSMENT Assessment 59-year-old male with a known history of seizure disorder, anxiety and depression disorder, bipolar disorder initially presented to the hospital with the abdominal pain abdominal bloating worsening for a week found to have 1. Small-bowel obstruction, resolved 2. New onset of AFib with RVR, currently on p.o. amiodarone 3. Seizure disorder 4. Anxiety and depression disorder 5. Bipolar disorder -diet as tolerated, start Eliquis Date of Service: Apr 12, 2025 Billing Provider: CHELO MAZA MD Common Visit Codes: NOT BILLABLE CHELO MAZA MD Apr 12, 2025 15:16
== END 2025-04-12 17:41 | disposition home or self-care (01) | DRG 389 ==
LOC: ER 13:45 → EDBD 13:45 → OVERFLOW 18:04 → DOU 04-08 03:15 → TELE-WESTW 04-11 16:05
PROVIDERS: ADMIT Internal Medicine; ATTEND Internal Medicine
PROC: 0D9670Z Drainage of Stomach with Drainage Device, Via Natural or Artificial Opening (ICD-10-PCS; principal; 2025-04-08)
DX: K56.609 Unspecified intestinal obstruction, unspecified as to partial versus complete obstruction (principal); I69.351 Hemiplegia and hemiparesis following cerebral infarction affecting right dominant side; K92.0 Hematemesis; G40.909 Epilepsy, unspecified, not intractable, without status epilepticus; I48.91 Unspecified atrial fibrillation; E66.9 Obesity, unspecified; F31.9 Bipolar disorder, unspecified; Z95.2 Presence of prosthetic heart valve; I10 Essential (primary) hypertension; F41.9 Anxiety disorder, unspecified; Z79.82 Long term (current) use of aspirin; Z79.899 Other long term (current) drug therapy; Z68.32 Body mass index [BMI] 32.0-32.9, adult
CPT/HCPCS: 36415; 71045; 74177; 74250; 80048; 80053; 81001; 83605; 83690; 83735; 84100; 84132; 84484; 85025; 87040; 87077; 87081; 87186; 93005; 93306; 96365; 96375; 96376; 99291; G0378; J2405; J2470; J2543; J3480; J3490